=== PATIENT | female | born 1960 | race Caucasian/White ===

== ENCOUNTER 2025-06-02 08:02 | Outpatient (AMB) | payer MEDICARE, MEDICAID, SELFPAY ==
--- NOTE | 2025-06-02 08:05 | PD.ORTHCLVIS ---
Vital signs 06/02/25 08:12 Height 1.63 m Height Method Measured Weight 109.996 kg Weight Measurement Method Standing Scale BMI 41.6 BP 135/81 H Blood Pressure Source Automatic Cuff Blood Pressure Location Left Upper Arm Position Sitting Respiration 18 Pulse 81 Pulse Source Monitor Temp 97.9 F Temp Source Temporal Artery Scan Pulse Oximetry (%) 96 Oxygen Delivery Method Room Air Med/Allergies Allergies & Medications Allergies No Known Allergies Allergy (Verified 06/02/25 08:13) Medication Reconciliation divalproex 500 mg tablet,delayed release 500 mg PO TID 06/02/25 [History Confirmed 06/02/25] hydroxyzine HCl 50 mg tablet 50 mg PO BID 06/02/25 [History Confirmed 06/02/25] meloxicam 7.5 mg tablet 7.5 mg PO QDAY #45 tabs 06/02/25 [Rx] oxycodone-acetaminophen 5 mg-325 mg tablet 1 tab PO Q6H PRN 06/02/25 [History Confirmed 06/02/25] trazodone 100 mg tablet 100 mg PO QDAY 06/02/25 [History Confirmed 06/02/25] Exam Exam Breathing is nonlabored. Patient has a normal mood and affect. Bilateral extremities were evaluated and demonstrates sensation intact to light touch. Palpable pedal pulses are present. No significant edema is present. Bilateral hips were examined. The patient has no pain with log roll of the hips. Internal rotation to 30 degrees and external rotation to 30 degrees is painless. Negative FADIR. Left knee was examined today. The left knee is in reasonable alignment. Range of motion from 0-120 degrees. Knee is stable to varus and valgus as well as AP translation with <5mm. Patient has a negative McMurrays. There is no pain with patellofemoral compression and no crepitus noted. The knee is nontender to palpation. The right knee was also examined. The right knee is in varus alignment. Range of motion from 0-115 degrees. Knee is stable to varus and valgus as well as AP translation with <5mm. Patient has a negative McMurrays. There is no pain with patellofemoral compression and no crepitus noted. The knee is tender to palpation medially. The patient has no x-rays with her to review today. She was told she was [id number] in her knee Assessment and Plan Problem List (1) Arthritis of right knee: Status: Acute Plan: Patient is a pleasant 65-year-old female with right knee pain and right knee arthritis. We discussed different treatment options. I would like to see weightbearing x-rays. She has not tried any conservative treatment including any injections or anti-inflammatories. We will get x-rays and we will do an injection at the next visit. Sent her prescription for meloxicam. Office Procedures GNS Level of Care Nursing/Assessment Patient Status: Initial/New Patient Nursing Assessment/Reassesment: Medication Reconciliation, Orthostatic Vitals, Update PMH in EMR and Vital Signs Coordination of Care: Complex Care and Chronic Disease 1-5, Education Complex Pt/Fam, Consent,records obtained, informed consent, Lab and Imaging orders, Results/Orders obtained and Staff clarify orders New Patient Charge New Patient Point Assignment: [id number] New Patient Point Charge: LAND MANAGER Level 4 ([id number]) MA Intake Visit Data Collection New Patient or Established: New Patient (never been to [facility]) Reason for Visit:: RIGHT KNEE OSTEOARTHRITIS Seen by Clinical Staff ONLY (RN/MA): No Assistant Floor Covering Printer Required: No PCP or OBGYN visit in last 3 months: Yes Hx Now: No Do You Feel Safe at Home: Yes Authorities Contacted: N/A Questionairres Past Medical History Past Medical History Have you ever been diagnosed with any of the following: Respiratory Problems Smoking: No Smoking Cessation Counseling: No Smoking Exposure: No Subjective Visit Visit for: new patient and knee Immunization / Flu Flu Vaccine in the Last 12 Months: No Flu Vaccine Exclusion Criteria: Refused by Patient History of Present Illness Chief complaint: RIGHT KNEE OSTEOARTHRITIS Patient is a pleasant 65-year-old female with right knee pain and right knee arthritis. She has not tried significant conservative treatment. She was told she was cqni-[id number]-uczy. Her BMI is currently 41. Not had any anti-inflammatories or injections. The pain is diffuse Personal History Occupation: RETIRED Red flag PMH: none BMI Counceling provided: Yes Pain Pain level (0-10): 9 Pain location: anterior and posterior Pain quality: sharp Pain timing: night, increases with activity and stairs Associated signs & symptoms: numbness, weakness and stiffness Ambulatory data Ambulatory device: walker Walking distance (minutes): 15 Treatments Number of previous injections: 0 Improvement with previous injections: No Number of Physical Therapy sessions: 0 Improvement with PT: No Improvement with NSAIDS: no Review of Systems Review of Systems: All systems negative unless otherwise noted in HPI.
[2025-06-02 08:12] VITALS: BP 135/81; PULSE 81; RESP 18; TEMP 36.6; O2SAT 96; BMI 41.6
--- NOTE | 2025-06-02 08:22 | XR_ITS ---
Examination: Bilateral knee single view Right knee PA lateral axial 3 views TECHNIQUE: Bilateral AP knees standing single view Right knee PA standing flexion, standing lateral, axial right knee 3 views total 4 views Date and time: June 02, 2025 0833 hours INDICATIONS: Right knee pain beginning 6 months ago. FINDINGS: Advanced right knee tricompartment osteoarthritis Severe narrowing lateral joint space right knee [id number] Moderate narrowing medial lateral joint spaces left knee No fracture IMPRESSION: Advanced right knee tricompartment osteoarthritis, including severe narrowing lateral joint space right knee, [id number].
== END 2025-06-02 08:29 | disposition home or self-care (01) ==
LOC: HODSRG 08:02
PROVIDERS: Supervising Provider Orthopaedic Surgery Adult Reconstructive Orthopaedic Surgery; Visit Provider Orthopaedic Surgery Adult Reconstructive Orthopaedic Surgery
DX: M17.11 Unilateral primary osteoarthritis, right knee (principal); M25.561 Pain in right knee
CPT/HCPCS: 73564; 99204; G0463

== ENCOUNTER 2025-06-18 13:17 | Outpatient (AMB) | payer MEDICARE, MEDICAID, SELFPAY ==
--- NOTE | 2025-06-18 13:26 | ORTHONT_ITS ---
Vital signs 06/18/25 13:35 Height 1.63 m Height Method Measured Weight 111.13 kg Weight Measurement Method Standing Scale BMI 41.8 Respiration 16 Pulse 96 Pulse Source Monitor Temp 98.1 F Temp Source Temporal Artery Scan Pulse Oximetry (%) 96 Oxygen Delivery Method Room Air Med/Allergies Allergies & Medications Allergies No Known Allergies Allergy (Verified 06/18/25 13:36) Medication Reconciliation divalproex 500 mg tablet,delayed release 500 mg PO TID 06/02/25 [History Confirmed 06/18/25] hydroxyzine HCl 50 mg tablet 50 mg PO BID 06/02/25 [History Confirmed 06/18/25] meloxicam 7.5 mg tablet 7.5 mg PO QDAY #45 tabs 06/02/25 [Rx Confirmed 06/18/25] oxycodone-acetaminophen 5 mg-325 mg tablet 1 tab PO Q6H PRN 06/02/25 [History Confirmed 06/18/25] trazodone 100 mg tablet 100 mg PO QDAY 06/02/25 [History Confirmed 06/18/25] Exam Exam Breathing is nonlabored. Patient has a normal mood and affect. Bilateral extremities were evaluated and demonstrates sensation intact to light touch. Palpable pedal pulses are present. No significant edema is present. Bilateral hips were examined. The patient has no pain with log roll of the hips. Internal rotation to 30 degrees and external rotation to 30 degrees is painless. Negative FADIR. Left knee was examined today. The left knee is in reasonable alignment. Range of motion from 0-120 degrees. Knee is stable to varus and valgus as well as AP translation with <5mm. Patient has a negative McMurrays. There is no pain with patellofemoral compression and no crepitus noted. The knee is nontender to palpation. The right knee was also examined. The right knee is in varus alignment. Range of motion from 0-115 degrees. Knee is stable to varus and valgus as well as AP translation with <5mm. Patient has a negative McMurrays. There is no pain with patellofemoral compression and no crepitus noted. The knee is tender to palpation medially. X-rays of the right knee demonstrate psfy-tj-ekbt arthritis with valgus deformity and lateral joint space narrowing Assessment and Plan Problem List (1) Arthritis of right knee: Status: Acute Plan: Patient is a pleasant 65-year-old female with right knee pain and right knee arthritis. We discussed different treatment options. I would like for her to lose weight if possible. We will give her cortisone injections to Recommend knee cortisone injection as patient would like to proceed with conservative treatment at this time. The risks and benefits of the procedure were reviewed with the patient and patient gave verbal consent to continue with the procedure. Procedure: performed by Dr. Erickson Using sterile technique the Right knee was thoroughly prepped with alcohol, and approximately 1 cc of Depo-Medrol 80mg/mL and 4 cc of 0.2% ropivacaine was injected without resistance into the medial tibial femoral joint space. The patient tolerated the procedure.. Office Procedures GNS Level of Care Nursing/Assessment Patient Status: Established Patient Nursing Assessment/Reassesment: Medication Reconciliation, Orthostatic Vitals, Update PMH in EMR and Vital Signs Coordination of Care: Complex Care and Chronic Disease 1-5, Education Complex Pt/Fam, Consent,records obtained, informed consent, Results/Orders obtained and Staff clarify orders Established Patient Charge Established Patient Point Assignment: 105 Established Patient Point Charge: EP Level 3 (80-115) Surgical Proc/IM SQ injection Major Surgical Procedure: Yes (KNEE INJECTION ) Medication Given Medication Given Medication Given: Yes Documented Dose Given: 1 Route: Infiitration Medication Given Medication Given Medication Given: Yes Documented Dose Given: 4 Route: Infiitration Office Meds methylprednisolone acetate 80 mg/mL suspension for injection Performing Provider: Vivek Erickson MD Performing Location: [facility] Administered by: Vivek Erickson MD on 06/18/25 14:05 Dose Route Admin Location Dispensed Lot Number Expiration Date Pack age [facility] Aeronautical Engineer 80 mg intra-articular KNEE 1 mL [id number] 03/07/27 [address]-3 [id number] [employer] ropivacaine (PF) 2 mg/mL (0.2 %) injection solution Performing Provider: Vivek Erickson MD Performing Location: [facility] Administered by: Vivek Erickson MD on 06/18/25 14:05 Dose Route Admin Location Dispensed Lot Number Expiration Date Pack age [facility] Aeronautical Engineer 20 mL Infiltration KNEE 20 mL [id number] 11/07/27 33582-841-20 [id number] [facility] Intake Visit Data Collection New Patient or Established: Established Patient (seen at [facility] within 3 years) Reason for Visit:: RIGHT KNEE OSTEOARTHRITIS Seen by Clinical Staff ONLY (RN/MA): No Nature Photographer Required: No PCP or OBGYN visit in last 3 months: Yes Hx Now: No Do You Feel Safe at Home: Yes Authorities Contacted: N/A Questionairres Past Medical History Past Medical History Have you ever been diagnosed with any of the following: Respiratory Problems Smoking: No Smoking Cessation Counseling: No Smoking Exposure: No Subjective Visit Visit for: follow up visit and knee Immunization / Flu Flu Vaccine in the Last 12 Months: No Flu Vaccine Exclusion Criteria: Refused by Patient History of Present Illness Chief complaint: RIGHT KNEE OSTEOARTHRITIS Patient is a pleasant 65-year-old female with right knee pain and right knee arthritis. She has not tried significant conservative treatment. She was told she was ikpa-qo-poyl. Her BMI is currently 41. She has Not had any anti-inf lammatories or injections. The pain is diffuse Personal History Occupation: RETIRED Red flag PMH: none BMI Counceling provided: Yes Pain Pain level (0-10): 6 Pain location: anterior and posterior Pain quality: sharp Pain timing: night, increases with activity and stairs Associated signs & symptoms: numbness, weakness and stiffness Ambulatory data Ambulatory device: walker Walking distance (minutes): 15 Treatments Number of previous injections: 0 Improvement with previous injections: No Number of Physical Therapy sessions: 0 Improvement with PT: No Improvement with NSAIDS: no Review of Systems Review of Systems: All systems negative unless otherwise noted in HPI.
[2025-06-18 13:35] VITALS: PULSE 96; RESP 16; TEMP 36.7; O2SAT 96; BMI 41.8
== END 2025-06-18 13:57 | disposition home or self-care (01) ==
LOC: HODSRG 13:17
PROVIDERS: Supervising Provider Orthopaedic Surgery Adult Reconstructive Orthopaedic Surgery; Visit Provider Orthopaedic Surgery Adult Reconstructive Orthopaedic Surgery
DX: M17.11 Unilateral primary osteoarthritis, right knee (principal); M25.561 Pain in right knee
CPT/HCPCS: 20610; 99213; J1010; J2795; G0463

== ENCOUNTER 2025-09-22 12:57 | Outpatient (AMB) | payer MEDICARE, MEDICAID, SELFPAY ==
--- NOTE | 2025-09-22 13:14 | PD.ORTHCLVIS ---
Vital signs 09/22/25 13:15 Height 1.63 m Height Method Measured Weight 108.522 kg Weight Measurement Method Standing Scale BMI 40.8 BP 123/85 H Blood Pressure Source Automatic Cuff Blood Pressure Location Left Upper Arm Position Sitting Respiration 18 Pulse 85 Pulse Source Monitor Temp 97.4 F Temp Source Temporal Artery Scan Pulse Oximetry (%) 97 Oxygen Delivery Method Room Air Med/Allergies Allergies & Medications Allergies No Known Allergies Allergy (Verified 09/22/25 13:15) Medication Reconciliation divalproex 500 mg tablet,delayed release 500 mg PO TID 06/02/25 [History Confirmed 09/22/25] hydroxyzine HCl 50 mg tablet 50 mg PO BID 06/02/25 [History Confirmed 09/22/25] meloxicam 7.5 mg tablet 7.5 mg PO QDAY #45 tabs 06/02/25 [Rx Confirmed 09/22/25] oxycodone-acetaminophen 5 mg-325 mg tablet 1 tab PO Q6H PRN 06/02/25 [History Confirmed 09/22/25] trazodone 100 mg tablet 100 mg PO QDAY 06/02/25 [History Confirmed 09/22/25] Exam Exam Breathing is nonlabored. Patient has a normal mood and affect. Bilateral extremities were evaluated and demonstrates sensation intact to light touch. Palpable pedal pulses are present. No significant edema is present. Bilateral hips were examined. The patient has no pain with log roll of the hips. Internal rotation to 30 degrees and external rotation to 30 degrees is painless. Negative FADIR. Left knee was examined today. The left knee is in reasonable alignment. Range of motion from 0-120 degrees. Knee is stable to varus and valgus as well as AP translation with <5mm. Patient has a negative McMurrays. There is no pain with patellofemoral compression and no crepitus noted. The knee is nontender to palpation. The right knee was also examined. The right knee is in varus alignment. Range of motion from 0-115 degrees. Knee is stable to varus and valgus as well as AP translation with <5mm. Patient has a negative McMurrays. There is no pain with patellofemoral compression and no crepitus noted. The knee is tender to palpation medially. X-rays of the right knee demonstrate [id number]-[id number] arthritis with valgus deformity and lateral joint space narrowing Assessment and Plan Problem List (1) Arthritis of right knee: Status: Acute Plan: Patient is a pleasant 65-year-old female with right knee pain and right knee arthritis. We discussed different treatment options. I would like for her to lose weight if possible. She will need cardiac clearance prior to surgery Recommend knee cortisone injection as patient would like to proceed with conservative treatment at this time. The risks and benefits of the procedure were reviewed with the patient and patient gave verbal consent to continue with the procedure. Procedure: performed by Dr. rEickson Using sterile technique the Right knee was thoroughly prepped with alcohol, and approximately 1 cc of Depo-Medrol 80mg/mL and 4 cc of 0.2% ropivacaine was injected without resistance into the medial tibial femoral joint space. The patient tolerated the procedure.. Office Procedures GNS Level of Care Nursing/Assessment Patient Status: Established Patient Nursing Assessment/Reassesment: Medication Reconciliation, Update PMH in EMR and Vital Signs Coordination of Care: Complex Care and Chronic Disease 1-5, Education Complex Pt/Fam, Consent,records obtained, informed consent, Results/Orders obtained and Staff clarify orders Established Patient Charge Established Patient Point Assignment: 95 Established Patient Point Charge: EP Level 3 (80-115) Surgical Proc/IM SQ injection Minor Surgical Procedure: Yes (KNEE INJECTION) Medication Given Medication Given Medication Given: Yes Documented Dose Given: 1 Route: Infiitration Medication Given Medication Given Medication Given: Yes Documented Dose Given: 4 Route: Infiitration Office Meds methylprednisolone acetate 80 mg/mL suspension for injection Performing Provider: Vivek Erickson MD Performing Location: [facility] Administered by: Vivek Erickson MD on 09/22/25 14:21 Dose Route Admin Location Dispensed Lot Number Expiration Date Package [facility] Tool Repairer Bench 80 mg intra-articular 1 mL [id number] 06/06/27 [address]-9 [id number] [employer] ropivacaine (PF) 2 mg/mL (0.2 %) injection solution Performing Provider: Vivek Erickson MD Performing Location: [facility] Administered by: Vivek Erickson MD on 09/22/25 14:21 Dose Route Admin Location Dispensed Lot Number Expiration Date Package [facility] [place] Tool Repairer Bench 20 mL Infiltration 20 mL [id number] 11/06/27 58593-652-81 [id number] [facility] Intake Visit Data Collection New Patient or Established: Established Patient (seen at [facility] within 3 years) Reason for Visit:: 3 MONTH F/U RT KNEE INJECTION Seen by Clinical Staff ONLY (RN/MA): No Pharmacist In Charge Required: No PCP or OBGYN visit in last 3 months: Yes Hx Now: No Do You Feel Safe at Home: Yes Authorities Contacted: N/A Questionairres Past Medical History Past Medical History Have you ever been diagnosed with any of the following: Respiratory Problems Smoking: No Smoking Cessation Counseling: No Smoking Exposure: No Subjective Visit Visit for: follow up visit and knee Immunization / Flu Flu Vaccine in the Last 12 Months: No Flu Vaccine Exclusion Criteria: Refused by Patient History of Present Illness Chief complaint: RIGHT KNEE OSTEOARTHRITIS Patient is a pleasant 65-year-old female with right knee pain and right knee arthritis. She had a prior injection in the past. The injection worked for a good 2 months. She would like repeat injections of the right knee today Personal History Occupation: RETIRED Red flag PMH: none BMI Counceling provided: Yes Pain Pain level (0-10): 6 Pain location: anterior and posterior Pain quality: sharp Pain timing: night, increases with activity and stairs Associated signs & symptoms: numbness, weakness and stiffness Ambulatory data Ambulatory device: walker Walking distance (minutes): 15 Treatments Number of previous injections: 0 Improvement with previous injections: No Number of Physical Therapy sessions: 0 Improvement with PT: No Improvement with NSAIDS: no Review of Systems Review of Systems: All systems negative unless otherwise noted in HPI.
[2025-09-22 13:15] VITALS: BP 123/85; PULSE 85; RESP 18; TEMP 36.3; O2SAT 97; BMI 40.8
== END 2025-09-22 13:17 | disposition home or self-care (01) ==
LOC: HODSRG 12:57
PROVIDERS: Supervising Provider Orthopaedic Surgery Adult Reconstructive Orthopaedic Surgery; Visit Provider Orthopaedic Surgery Adult Reconstructive Orthopaedic Surgery
DX: M17.11 Unilateral primary osteoarthritis, right knee (principal)
CPT/HCPCS: 20610; 99213; J1010; J2795; G0463